=== PATIENT | male | born 1985 | race Caucasian/White ===

== ENCOUNTER 2017-05-14 11:36 | Outpatient (CLI) | payer MEDICAID ==
[~2017-05-14 11:36] MED LIST: ASPI-41 PO; INSU100C4 SQ; LANTUS SQ; LISD20CA PO; METO5TAB98 PO; PANT-47 PO
== END 2017-05-14 23:59 | disposition home or self-care (01) ==
LOC: VAS 11:36
PROVIDERS: ATTEND Student in an Organized Health Care Education/Training Program
DX: M79.661 Pain in right lower leg (principal); I10 Essential (primary) hypertension; E10.9 Type 1 diabetes mellitus without complications; Z86.73 Personal history of transient ischemic attack (TIA), and cerebral infarction without residual deficits
CPT/HCPCS: 93926; 93971

== ENCOUNTER 2017-07-13 17:34 | Emergency (ER) | payer MEDICARE, MEDICAID ==
[~2017-07-13] VITALS: Ht 177.8 cm; Wt 75.0 kg
[2017-07-13 18:15] LABS: BASOPHILS % (AUTO) 0.5 % (0-1); EOSINOPHILS # (AUTO) 0.1 X10'3 (0-0.9); EOSINOPHILS % (AUTO) 0.8 % (0-6); HEMATOCRIT 48.4 % (42.0-52.0); HEMOGLOBIN 16.5 g/dl (14.0-17.9); LYMPHOCYTES # (AUTO) 1.4 X10'3 (1.1-4.8); LYMPHOCYTES % (AUTO) 15.5 % (21-51); MEAN CORPUSCULAR HEMOGLOBIN 30.1 PG (27.0-31.0); MEAN CORPUSCULAR HGB CONC 34.1 % (33.0-36.5); MEAN CORPUSCULAR VOLUME 88.1 FL (78-98); MEAN PLATELET VOLUME 7.8 FL (7.4-10.4); MONOCYTES # (AUTO) 0.4 X10'3 (0-0.9); MONOCYTES % (AUTO) 4.2 % (2-12); PLATELET COUNT 258 X10'3 (140-440); RED BLOOD COUNT 5.49 X10'6 (4.70-6.10); RED CELL DISTRIBUTION WIDTH 12.7 % (11.5-14.5); WHITE BLOOD COUNT 8.9 X10'3 (4.5-11.0)
[2017-07-13 18:24] LABS: PARTIAL THROMBOPLASTIN TIME 23 SECONDS (22-32); PROTHROMBIN TIME 10.5 SECONDS (9.0-12.0)
[2017-07-13 18:31] LABS: ALANINE AMINOTRANSFERASE 35 U/L (12-78); ALBUMIN 4.4 G/DL (3.4-5.0); ALBUMIN/GLOBULIN RATIO 1.2 (1.1-1.5); ALKALINE PHOSPHATASE 90 IU/L (46-116); ANION GAP 9 (8-16); ASPARTATE AMINO TRANSFERASE 21 U/L (10-37); BILIRUBIN,TOTAL 0.7 MG/DL (0.1-1.0); BLOOD UREA NITROGEN 9 MG/DL (7-18); BUN/CREATININE RATIO 9.1 (5.4-32.0); CALCIUM 9.5 MG/DL (8.5-10.1); CHLORIDE 98 MMOL/L (99-107); CREATININE 0.99 MG/DL (0.60-1.10); GLUCOSE 214 MG/DL (70-104); POTASSIUM 4.5 MMOL/L (3.5-5.1); SODIUM 140 MMOL/L (135-145); TOTAL PROTEIN 8.1 G/DL (6.4-8.2); TROPONIN I < 0.04 NG/ML (0.0-0.05); eGFR 88 ML/MIN
[2017-07-13] MEDS ORDERED: LORazepam 2 mg/ml vial IV ONE (18:55)
[2017-07-13 18:56] LABS: ETHANOL < 0.010 GM/DL (0.0-0.010)
[2017-07-13 19:09] LABS: CLARITY,URINE Clear (Clear); COLOR,URINE Yellow (Yellow); GLUCOSE, URINE 500 mg/dl (Neg); KETONES,URINE Negative (Neg); LEUKOCYTE ESTERASE ,URINE Negative (Neg); NITRITES, URINE Negative (Neg); OCCULT BLOOD,URINE Negative (Neg); PROTEIN,URINE Negative (Neg); UROBILINOGEN,URINE 0.2 E.U/dL (0.2-1.0)
[2017-07-13 19:10] LABS: URINE AMPHETAMINE SCREEN POSITIVE (Neg); URINE BARBITUATE SCREEN NEGATIVE (Neg); URINE BENZODIAZEPINES SCREEN NEGATIVE (Neg); URINE CANNABINOID SCREEN NEGATIVE (Neg); URINE COCAINE SCREEN NEGATIVE (Neg); URINE METHADONE SCREEN NEGATIVE (Neg); URINE OPIATE SCREEN NEGATIVE (Neg); URINE PHENCYCLIDINE SCREEN NEGATIVE (Neg)
[2017-07-13 19:24] LABS: UA COLLECTION TYPE CLN CATCH MIDSTREAM
[2017-07-13 21:09] VITALS: BP 148/92
== END 2017-07-13 21:11 | disposition home or self-care (01) ==
LOC: ER 17:34
DX: F44.89 Other dissociative and conversion disorders (principal); E11.9 Type 2 diabetes mellitus without complications; F41.9 Anxiety disorder, unspecified; Z86.73 Personal history of transient ischemic attack (TIA), and cerebral infarction without residual deficits; Z79.82 Long term (current) use of aspirin; Z79.4 Long term (current) use of insulin
CPT/HCPCS: 36415; 70450; 71045; 80053; 80305; 80320; 81003; 82948; 84484; 85025; 85610; 85730; 93005; 96374; 99285; J2060; J7030

== ENCOUNTER 2017-11-09 23:11 | Emergency (ER) | payer MEDICARE, MEDICAID ==
[~2017-11-09] VITALS: Ht 177.8 cm; Wt 57.8 kg
[2017-11-09 23:19] VITALS: BP 136/86
[2017-11-10] MEDS ORDERED: LIDOcaine 1% 30ml preserv. free vial IJ ONE (00:05)
[2017-11-10] MEDS ORDERED: TETanus/Pertussis (Acell)/Diphther VAC/PF (Tdap-Adult) 0.5ml syringe IM ONE (00:05)
[2017-11-10] MEDS ORDERED: CEPH-572 PO (00:42)
== END 2017-11-10 00:54 | disposition home or self-care (01) ==
LOC: ER 23:11
DX: S81.811A Laceration without foreign body, right lower leg, initial encounter (principal); E11.9 Type 2 diabetes mellitus without complications; Z86.73 Personal history of transient ischemic attack (TIA), and cerebral infarction without residual deficits; Z79.82 Long term (current) use of aspirin; Z79.4 Long term (current) use of insulin; Z79.899 Other long term (current) drug therapy; W45.8XXA Other foreign body or object entering through skin, initial encounter; Y93.01 Activity, walking, marching and hiking; Y92.89 Other specified places as the place of occurrence of the external cause; Y99.8 Other external cause status
CPT/HCPCS: 12001; 90471; 90715; 99283; A6255; A6449; J3490

== ENCOUNTER 2018-08-27 23:19 | Emergency (ER) | payer MEDICARE, MEDICAID ==
[~2018-08-27] VITALS: Ht 177.8 cm; Wt 57.5 kg
[2018-08-28] MEDS ORDERED: ketorolac trometh inj. 60 MG/2 ML VIAL IM ONE
[2018-08-28 00:19] VITALS: BP 136/91
== END 2018-08-28 00:20 | disposition home or self-care (01) ==
LOC: ER 23:19
DX: S76.212A Strain of adductor muscle, fascia and tendon of left thigh, initial encounter (principal); E11.9 Type 2 diabetes mellitus without complications; G89.29 Other chronic pain; Z79.82 Long term (current) use of aspirin; Z79.4 Long term (current) use of insulin; Z79.899 Other long term (current) drug therapy; X58.XXXA Exposure to other specified factors, initial encounter; Y93.89 Activity, other specified; Y92.89 Other specified places as the place of occurrence of the external cause; Y99.8 Other external cause status
CPT/HCPCS: 96372; 99283; J1885

== ENCOUNTER 2018-09-07 02:33 | Outpatient (CLI) | payer MEDICARE, MEDICAID | END 2018-09-07 23:59 | disposition home or self-care (01) | LOC: DIABETIC 02:33 | PROVIDERS: ATTEND Internal Medicine Endocrinology, Diabetes & Metabolism | DX: E10.9 Type 1 diabetes mellitus without complications (principal) | CPT/HCPCS: G0108 ==

== ENCOUNTER 2019-05-21 17:58 | Emergency (ER) | payer MEDICAID, MEDICARE ==
[~2019-05-21] VITALS: Ht 177.8 cm; Wt 70.0 kg
[2019-05-21 20:49] VITALS: BP 130/80
== END 2019-05-21 20:52 | disposition home or self-care (01) ==
LOC: ER 17:59
DX: R51 Headache (principal); G89.29 Other chronic pain; E10.9 Type 1 diabetes mellitus without complications; Z86.73 Personal history of transient ischemic attack (TIA), and cerebral infarction without residual deficits; Z79.82 Long term (current) use of aspirin; Z79.899 Other long term (current) drug therapy; Z79.4 Long term (current) use of insulin; W01.198A Fall on same level from slipping, tripping and stumbling with subsequent striking against other object, initial encounter; Y93.89 Activity, other specified; Y92.89 Other specified places as the place of occurrence of the external cause; Y99.9 Unspecified external cause status
CPT/HCPCS: 70450; 99284

== ENCOUNTER 2019-05-31 14:07 | Emergency (ER) | payer MEDICARE ==
[~2019-05-31] VITALS: Ht 177.8 cm; Wt 68.0 kg
[2019-05-31 14:08] VITALS: BP 129/81
== END 2019-05-31 15:33 | disposition home or self-care (01) ==
LOC: ER 14:07
DX: S20.311A Abrasion of right front wall of thorax, initial encounter (principal); R55 Syncope and collapse; E10.9 Type 1 diabetes mellitus without complications; G89.29 Other chronic pain; F41.9 Anxiety disorder, unspecified; F31.9 Bipolar disorder, unspecified; Z86.73 Personal history of transient ischemic attack (TIA), and cerebral infarction without residual deficits; Z79.82 Long term (current) use of aspirin; Z79.4 Long term (current) use of insulin; Z79.899 Other long term (current) drug therapy; W18.39XA Other fall on same level, initial encounter; Y93.89 Activity, other specified; Y92.89 Other specified places as the place of occurrence of the external cause; Y99.8 Other external cause status
CPT/HCPCS: 71045; 82948; 93005; 99284

== ENCOUNTER 2020-10-11 15:34 | Emergency (ER) | payer MEDICARE, MEDICAID ==
[~2020-10-11] VITALS: Ht 177.8 cm; Wt 75.0 kg
[2020-10-11 15:44] VITALS: BP 136/81
--- NOTE | 2020-10-11 19:28 | NUR ---
PA at bedside for medical evaluation.
[2020-10-11] MEDS ORDERED: LIDOcaine 1% W/epiNEPHrine 1:200,000 10ml vial IJ ONE (19:40)
--- NOTE | 2020-10-11 19:40 | NUR ---
Wound be irrigated by cat scan technologist for staple prep.
== END 2020-10-11 20:06 | disposition home or self-care (01) ==
LOC: ER 15:36
DX: S01.01XA Laceration without foreign body of scalp, initial encounter (principal); S16.1XXA Strain of muscle, fascia and tendon at neck level, initial encounter; W19.XXXA Unspecified fall, initial encounter; E11.9 Type 2 diabetes mellitus without complications; F31.9 Bipolar disorder, unspecified; Z79.899 Other long term (current) drug therapy; Y93.89 Activity, other specified; Y92.89 Other specified places as the place of occurrence of the external cause; Y99.8 Other external cause status
CPT/HCPCS: 12002; 99284

== ENCOUNTER 2020-10-21 14:14 | Emergency (ER) | payer MEDICARE, MEDICAID ==
[~2020-10-21] VITALS: Ht 177.8 cm; Wt 75.0 kg
[2020-10-21 14:32] VITALS: BP 119/83
== END 2020-10-21 14:57 | disposition home or self-care (01) ==
LOC: ER 14:14
DX: S01.01XD Laceration without foreign body of scalp, subsequent encounter (principal); E11.9 Type 2 diabetes mellitus without complications; G89.29 Other chronic pain; Z48.02 Encounter for removal of sutures; Z86.73 Personal history of transient ischemic attack (TIA), and cerebral infarction without residual deficits; X58.XXXD Exposure to other specified factors, subsequent encounter
CPT/HCPCS: 99281

== ENCOUNTER 2024-07-27 21:32 | Emergency (ER) | payer MEDICARE, MEDICAID ==
[~2024-07-27] VITALS: Ht 177.8 cm; Wt 77.3 kg
[2024-07-27 22:19] LABS: BASOPHILS % (AUTO) 0.3 % (0-1); EOSINOPHILS # (AUTO) 0.1 X10'3 (0-0.9); EOSINOPHILS % (AUTO) 1.4 % (0-6); HEMATOCRIT 46.2 % (42.0-52.0); HEMOGLOBIN 15.8 g/dl (14.0-17.9); LYMPHOCYTES # (AUTO) 1.7 X10'3 (1.1-4.8); LYMPHOCYTES % (AUTO) 29.5 % (21-51); MEAN CORPUSCULAR HEMOGLOBIN 29.5 PG (27.0-31.0); MEAN CORPUSCULAR HGB CONC 34.2 g/dL (33.0-36.5); MEAN CORPUSCULAR VOLUME 86.3 FL (78-98); MEAN PLATELET VOLUME 7.7 FL (7.4-10.4); MONOCYTES # (AUTO) 0.3 X10'3 (0-0.9); MONOCYTES % (AUTO) 4.4 % (2-12); NEUTROPHILS # (AUTO) 3.7 X10'3 (1.8-7.7); NEUTROPHILS % (AUTO) 64.4 % (42-75); PLATELET COUNT 310 X10'3 (140-440); RED BLOOD COUNT 5.35 X10'6 (4.70-6.10); RED CELL DISTRIBUTION WIDTH 12.7 % (11.5-14.5); WHITE BLOOD COUNT 5.7 X10'3 (4.5-11.0)
[2024-07-27 22:34] LABS: ALANINE AMINOTRANSFERASE 39 U/L (12-78); ALBUMIN/GLOBULIN RATIO 1.1 (1.1-1.5); ALKALINE PHOSPHATASE 84 IU/L (46-116); ASPARTATE AMINO TRANSFERASE 44 U/L (10-37); BILIRUBIN,TOTAL 0.5 MG/DL (0.1-1.0); BLOOD UREA NITROGEN 15 MG/DL (7-18); BUN/CREATININE RATIO 13.8 (10.0-20.0); CALCIUM 9.2 MG/DL (8.5-10.1); CREATININE 1.09 MG/DL (0.60-1.10); GLUCOSE 144 MG/DL (70-104); POTASSIUM 4.2 MMOL/L (3.5-5.1); SODIUM 141 MMOL/L (135-145); TOTAL PROTEIN 7.7 G/DL (6.4-8.2); eCRCL 94 ML/MIN; eGFR 75 ML/MIN
[2024-07-27 22:49] LABS: ANION GAP 4 (8-16); CHLORIDE 101 MMOL/L (99-107); PRO BRAIN NATRIURETIC PEPTIDE < 30 PG/ML (0-125)
[2024-07-27] MEDS: LORazepam 1 MG tablet PO ONE (22:52)
[2024-07-27 23:39] VITALS: BP 132/82; PULSE 78
[2024-07-28 00:51] VITALS: TEMP 97.8; O2SAT 99
[2024-07-28 00:53] VITALS: RESP 16
== END 2024-07-28 00:57 | disposition home or self-care (01) ==
LOC: ER 21:33
DX: F44.9 Dissociative and conversion disorder, unspecified (principal); E11.9 Type 2 diabetes mellitus without complications; F31.9 Bipolar disorder, unspecified; F41.9 Anxiety disorder, unspecified; Z79.82 Long term (current) use of aspirin; Z86.73 Personal history of transient ischemic attack (TIA), and cerebral infarction without residual deficits
CPT/HCPCS: 36415; 70450; 71045; 80053; 82948; 83880; 84484; 85025; 93005; 99285

== ENCOUNTER 2025-03-28 13:32 | Outpatient (CLI) | payer MEDICARE, MEDICAID ==
--- NOTE | 2025-03-29 09:40 | RADIOLOGY REPORT ---
CLINICAL INFORMATION: Neck and shoulder pain. TECHNIQUE: Multisequence multiplanar MRI images of the cervical spine were obtained without contrast. COMPARISON: None FINDINGS: Bones: Vertebral body alignment is within normal limits. Vertebral body heights are maintained. Posterior elements are intact. No acute fracture. No focal suspicious marrow signal abnormality. Spinal cord: Spinal cord is normal in signal intensity and morphology. Paraspinal soft tissues: Paraspinal and prevertebral soft tissues are unremarkable. Other: Mildly prominent level 2 cervical lymph nodes bilaterally measuring up to 1.4 x 0.7 cm on the right and 1.5 x 0.6 cm on the left. Cervical disc levels: C2-C3: Disc desiccation. No significant disc bulge or spinal canal stenosis. No significant neural foraminal stenosis. C3-C4: Disc desiccation. No significant disc bulge. There is moderate congenital spinal canal narrowing. Facet and uncinate hypertrophy with moderate left neural foraminal stenosis. C4-C5: Disc desiccation. Mild diffuse disc bulge with superimposed small central disc protrusion, with congenital spinal canal narrowing contributing to moderate spinal canal stenosis. Facet and uncinate hypertrophy with moderate left neural foraminal stenosis. C5-C6: Disc desiccation with diffuse disc bulge superimposed on congenital spinal canal narrowing causing moderate spinal canal stenosis and effacement of the lateral recesses, left greater than right. Possible superimposed small left subarticular / foraminal disc protrusion. Facet and uncinate hypertrophy with moderate left neural foraminal stenosis. C6-C7: Disc desiccation with diffuse disc bulge and superimposed left paracentral / subarticular disc extrusion extending caudally up to 0.5 cm, effacing the left lateral recess. There is moderate spinal canal stenosis secondary to the disc bulge/ protrusion and congenital spinal canal narrowing. Facet and uncinate hypertrophy with moderate left neural foraminal stenoses. C7-T1: Disc desiccation. Mild disc bulge s with congenital spinal canal narrowing contributing to mild spinal canal stenosis. Facet and uncinate hypertrophy with moderate left neural foraminal stenoses. IMPRESSION: 1. 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 2. 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 3. Likely reactive cervical lymph nodes. 4. Additional findings as detailed above.
== END 2025-03-28 23:59 | disposition home or self-care (01) ==
LOC: MRI02 13:32
PROVIDERS: ATTEND Family Medicine Sports Medicine
DX: M50.13 Cervical disc disorder with radiculopathy, cervicothoracic region (principal); M25.511 Pain in right shoulder; M77.9 Enthesopathy, unspecified; M75.111 Incomplete rotator cuff tear or rupture of right shoulder, not specified as traumatic; M48.03 Spinal stenosis, cervicothoracic region; M47.22 Other spondylosis with radiculopathy, cervical region
CPT/HCPCS: 72141